=== PATIENT | male | born 1985 | race Two or more races ===

== ENCOUNTER 2017-06-19 11:19 | Emergency (ER) | payer SELFPAY ==
[~2017-06-19] VITALS: Ht 167.6 cm; Wt 84.8 kg
[2017-06-19 12:06] VITALS: BP 103/70
== END 2017-06-19 12:23 | disposition home or self-care (01) ==
LOC: ER 11:19
DX: L03.113 Cellulitis of right upper limb (principal); F17.210 Nicotine dependence, cigarettes, uncomplicated